=== PATIENT | female | born 1960 | race Caucasian/White ===

== ENCOUNTER → 2017-12-01 | Outpatient (CLI) | payer OTHER ==
--- NOTE | 2017-12-02 10:34 | Diagnostic Imaging Report ---
EXAM: Digital mammogram, bilateral screening COMPARISON: The study was compared to the prior exams of 05/16/2013 and 01/03/2011. At this time, there are no current complaints. FINDINGS: Both breasts do seem smaller than noted on the prior exam. Reportedly, the patient has lost approximate 70 pounds since the previous study. There are scattered fibroglandular densities in both breasts which could obscure a lesion. Overall, there has been no adverse change since the prior exam. There is no primary or secondary sign of malignancy noted. IMPRESSION: There is no evidence of malignancy. ACR BI-RADS Category 1: Negative. Result letter will be mailed to the patient. Note: At least 10% of breast cancer is not imaged by mammography. Dictated by: Dictated on workstation # [id number]
== END ==
LOC: RAD 14:18
PROVIDERS: ATTEND Family Medicine
DX: Z12.31 Encounter for screening mammogram for malignant neoplasm of breast (principal)
CPT/HCPCS: 77067

== ENCOUNTER → 2019-01-22 | Outpatient (CLI) | payer OTHER ==
--- NOTE | 2019-01-22 20:43 | Diagnostic Imaging Report ---
INDICATION: Routine screening. Comparison is made with prior mammogram from 12/01/2017 and 05/16/2013. 2-D and 3-D bilateral screening mammography was performed with CAD. The current study was also evaluated with a Computer Aided Detection (CAD) system. FINDINGS: Scattered fibroglandular densities are identified bilaterally. No mass or malignant-appearing microcalcifications are seen. Axillae are unremarkable. IMPRESSION: No mammographic features suspicious for malignancy are identified. ACR BI-RADS Category 1: Negative. Result letter will be mailed to the patient. Note: At least 10% of breast cancer is not imaged by mammography. Dictated by: Dictated on workstation # [id number]
== END ==
LOC: RAD 11:27
PROVIDERS: ATTEND Nurse Practitioner Family
DX: Z12.31 Encounter for screening mammogram for malignant neoplasm of breast (principal)
CPT/HCPCS: 77067